=== PATIENT | male | born 1990 | race Two or more races ===

== ENCOUNTER 2018-05-21 22:33 | Emergency (ER) | payer BC ==
[2018-05-21] MEDS ORDERED: Ketorolac 60 MG/2 ML SDV IM ONE (22:54)
[2018-05-21] MEDS ORDERED: Lidocaine 2% Viscous Solution 15 ML Cup PO ONE (22:54)
[2018-05-21] MEDS ORDERED: Benzocaine 20% Topical Spray UD MUCMEM ONE (22:54)
[2018-05-21] MEDS ORDERED: Acetaminophen/HYDROcodone 325-10 MG Tab PO ONE (22:57)
--- NOTE | 2018-05-21 22:59 | EDM.PDOC ---
ED HPI GENERAL MEDICAL PROBLEM - General Chief Complaint: General Stated Complaint: BAD TOOTH ACHE Time Seen by Provider: 05/21/18 22:53 - History of Present Illness INITIAL COMMENTS - FREE TEXT/NARRATIVE: HISTORY AND PHYSICAL: History of present illness: Patient's a 28-year-old male presents with concern of right upper dental pain and right face pain is been worse over the last 24-48 hours denies fever chills nausea vomiting denies other concern Review of systems: As per history of present illness and below otherwise all systems reviewed and negative. Past medical history: As per history of present illness and as reviewed below otherwise noncontributory. Surgical history: As per history of present illness and as reviewed below otherwise noncontributory. Social history: No reported history of drug or alcohol abuse. Family history: As per history of present illness and as reviewed below otherwise noncontributory. Physical exam: HEENT: Atraumatic, normocephalic, pupils reactive, negative for conjunctival pallor or scleral icterus, mucous membranes moist, throat clear, neck supple, nontender, trachea midline. Generally poor dentition with multiple dental caries noted upper gingival edema in the region of his molar Lungs: Clear to auscultation, breath sounds equal bilaterally, chest nontender. Heart: S1S2, regular, negative for clicks, rubs, or JVD. Abdomen: Soft, nondistended, nontender. Negative for masses or hepatosplenomegaly. Negative for costovertebral tenderness. Pelvis: Stable nontender. Genitourinary: Deferred. Rectal: Deferred. Extremities: Atraumatic, negative for cords or calf pain. Neurovascular unremarkable. Neuro: Awake, alert, oriented. Cranial nerves II through XII unremarkable. Cerebellum unremarkable. Motor and sensory unremarkable throughout. Exam nonfocal. Diagnostics: None Therapeutics: Toradol 60 mg IM dental balls hydrocodone 10 mg by mouth Impression: #1 dentalgia #2 dental abscess Definitive disposition and diagnosis as appropriate pending reevaluation and review of above. Oral/Mouth Pain Score (Numeric/FACES): 10 - Related Data Allergies Allergy/AdvReac Type Severity Reaction Status Date / Time No Known Allergies Allergy Verified 05/21/18 22:53 Home Meds: Home Meds . [No Known Home Meds] 05/21/18 [History] Past Medical History - Past Health History Medical/Surgical History: Denies Medical/Surgical History Social & Family History - Tobacco Use Smoking Status *Q: Never Smoker ED ROS GENERAL - Review of Systems Review Of Systems: ROS reveals no pertinent complaints other than HPI. ED EXAM, GENERAL - Physical Exam Exam: See Below (See dictation) Course - Vital Signs Last Recorded V/S: Last Vital Signs Temp 36.6 C 05/21/18 22:50 Pulse 97 05/21/18 22:50 Resp 22 H 05/21/18 22:50 BP 146/93 H 05/21/18 22:50 Pulse Ox - Orders/Labs/Meds Orders: Active Orders 24 hr Category Date Time Status Benzocaine [Hurricaine One 20%] Med 05/21/18 22:54 Once 2 each MUCMEM ONETIME ONE Ketorolac [Toradol] Med 05/21/18 22:54 Once 60 mg IM ONETIME ONE Lidocaine 2% [Xylocaine 2% Viscous] Med 05/21/18 22:54 Once 15 ml PO ONETIME ONE Departure - Departure Time of Disposition: 22:57 Disposition: Home, Self-Care 01 Condition: Good Clinical Impression: Dentalgia, Dental abscess - Discharge Information *PRESCRIPTION DRUG MONITORING PROGRAM REVIEWED*: Not Applicable *COPY OF PRESCRIPTION DRUG MONITORING REPORT IN PATIENT [place]: Not Applicable Additional Instructions: The following information is given to patients seen in the emergency department who are being discharged to home. This information is to outline your options for follow-up care. We provide all patients seen in our emergency department with a follow-up referral. The need for follow-up, as well as the timing and circumstances, are variable depending upon the specifics of your emergency department visit. If you don't have a primary care physician on staff, we will provide you with a referral. We always advise you to contact your personal physician following an emergency department visit to inform them of the circumstance of the visit and for follow-up with them and/or the need for any referrals to a consulting specialist. The emergency department will also refer you to a specialist when appropriate. This referral assures that you have the opportunity for followup care with a specialist. All of these measure are taken in an effort to provide you with optimal care, which includes your followup. Under all circumstances we always encourage you to contact your private physician who remains a resource for coordinating your care. When calling for followup care, please make the office aware that this follow-up is from your recent emergency room visit. If for any reason you are refused follow-up, please contact the [facility] emergency department at and asked to speak to the emergency department charge nurse. Penicillin as prescribed Ultram as prescribed Motrin as directed - My Orders Last 24 Hours: My Active Orders 05/21/18 22:54 Benzocaine [Hurricaine One 20%] 2 each MUCMEM ONETIME ONE Ketorolac [Toradol] 60 mg IM ONETIME ONE Lidocaine 2% [Xylocaine 2% Viscous] 15 ml PO ONETIME ONE - Assessment/Plan Last 24 Hours: My Active Orders 05/21/18 22:54 Benzocaine [Hurricaine One 20%] 2 each MUCMEM ONETIME ONE Ketorolac [Toradol] 60 mg IM ONETIME ONE Lidocaine 2% [Xylocaine 2% Viscous] 15 ml PO ONETIME ONE
== END 2018-05-21 23:17 | disposition home or self-care (01) ==
LOC: MW.ED 22:33
DX: K04.7 Periapical abscess without sinus (principal)
CPT/HCPCS: 96372; 99282; A9270; J1885

== ENCOUNTER 2022-04-02 16:32 | Emergency (ER) | payer BC | END 2022-04-02 16:42 | disposition left against medical advice (07) | LOC: MW.ED 16:32 | DX: Z53.21 Procedure and treatment not carried out due to patient leaving prior to being seen by health care provider (principal) ==

== ENCOUNTER 2022-04-04 22:10 | Emergency (ER) | payer SELFPAY ==
[2022-04-04] MEDS ORDERED: Ketorolac 30 MG/ML SDV IM ONE (22:31)
[2022-04-04] MEDS ORDERED: Ondansetron 4 MG Tab.DIS PO ONE (22:31)
[2022-04-04] MEDS ORDERED: Alum Hydro/Mag Hydro/Simeth XS 15 ML, Lidocaine 2% 5 ML PO ONE ×2 (22:50)
== END 2022-04-04 23:07 | disposition home or self-care (01) ==
LOC: MW.ED 22:10
DX: U07.1 COVID-19 (principal)
CPT/HCPCS: 96372; 99283; A9270; J1885

== ENCOUNTER 2022-04-16 18:51 | Emergency (ER) | payer SELFPAY ==
[2022-04-16 20:13] LABS: BLOOD UREA NITROGEN,BUN 13 mg/dL (7.0-18.0); CARBON DIOXIDE,CO2 26.8 mmol/L (21.0-32.0); CHLORIDE,CL 102 mmol/L (98-107); GLUCOSE RANDOM 94 mg/dL (74-106); LIPASE 68 U/L (73-393); POTASSIUM,K 4.2 mmol/L (3.5-5.1); SODIUM,NA 140 mmol/L (136-148)
[2022-04-16 20:25] LABS: ESTIMATED GFR 102 mL/min (>60)
== END 2022-04-16 22:13 | disposition home or self-care (01) ==
LOC: MW.ED 18:51
DX: R10.9 Unspecified abdominal pain (principal)
CPT/HCPCS: 36415; 71045; 71045-26; 80053; 81003; 83690; 84484; 85025; 85379; 93005; 99284